=== PATIENT | female | born 1995 | race Two or more races ===

== ENCOUNTER 2022-11-26 15:00 | Observation (INO) | payer MEDICAID, OTHER ==
[~2022-11-26] VITALS: Ht 167.6 cm; Wt 100.2 kg
[2022-11-26] MEDS ORDERED: PREN-96 PO (16:19)
[2022-11-26 16:24] LABS: Basophils # (auto) 0 10 ^3/uL (0-0.2); Basophils % (auto) 0.3 % (0.0-2.0); Eosinophils # (auto) 0.1 10 ^3/uL (0-0.8); Eosinophils % (auto) 0.6 % (0.0-7.0); Hemoglobin 12.1 g/dL (12.2-16.2); Lymphocytes % (auto) 22.5 % (10.0-50.0); Mean Corpuscular Hemoglobin 31.5 pg (28.0-32.0); Mean Corpuscular Hgb Conc. 33.5 g/dL (32.0-36.0); Mean Corpuscular Volume 94.1 fL (80.0-100.0); Monocytes # (auto) 0.5 10 ^3/uL (0-1.3); Monocytes % (auto) 5.6 % (0.0-12.0); Neutrophils # (auto) 6.4 10 ^3/uL (1.6-8.6); Nucleated Red Blood Cells % 0.1 %; Red Blood Cells 3.83 10^6/uL (4.0-5.20); Red Cell Distribution Width 13.6 % (11.8-14.3)
[2022-11-26 16:44] LABS: Albumin 2.7 g/dL (3.4-5.0); Calcium 9.2 mg/dL (8.5-10.1); Potassium 3.8 mmol/L (3.5-5.1)
[2022-11-26 16:47] LABS: BUN/Creatinine Ratio 11.3 (10.0-20.0); Bilirubin, Total 0.7 mg/dL (0.2-1.0); Total Protein 7.7 g/dL (6.4-8.2)
[2022-11-26] MEDS ORDERED: URSO300C2 PO (17:38)
[2022-11-27 07:07] LABS: RPR Non Reactive (Non Reactive)
== END 2022-11-26 17:54 | disposition home or self-care (01) ==
LOC: LDRP 15:00
PROVIDERS: ADMIT Obstetrics & Gynecology; ATTEND Obstetrics & Gynecology
DX: O26.893 Other specified pregnancy related conditions, third trimester (principal); L29.9 Pruritus, unspecified; K83.1 Obstruction of bile duct; Z3A.29 29 weeks gestation of pregnancy
CPT/HCPCS: 36415; 59025; 76818; 80053; 81002; 84112; 84550; 85025; 86592; 94760; G0378

== ENCOUNTER 2022-11-30 13:00 | Observation (INO) | payer MEDICAID ==
[~2022-11-30 13:00] MED LIST: PREN-96 PO; URSO300C2 PO
== END 2022-11-30 15:01 | disposition home or self-care (01) ==
LOC: LDRP 13:00
PROVIDERS: ADMIT Obstetrics & Gynecology; ATTEND Obstetrics & Gynecology
DX: O26.613 Liver and biliary tract disorders in pregnancy, third trimester (principal); K83.1 Obstruction of bile duct; K76.89 Other specified diseases of liver; E78.79 Other disorders of bile acid and cholesterol metabolism; Z3A.35 35 weeks gestation of pregnancy
CPT/HCPCS: 59025; 76818; 81002; 94760; G0378

== ENCOUNTER 2022-12-10 09:30 | Observation (INO) | payer MEDICAID | END 2022-12-10 14:07 | disposition home or self-care (01) | LOC: UNDOADMOB 12:33 → LDRP 12:33 | PROVIDERS: ADMIT Obstetrics & Gynecology; ATTEND Obstetrics & Gynecology | DX: O26.613 Liver and biliary tract disorders in pregnancy, third trimester (principal); K83.1 Obstruction of bile duct; Z3A.36 36 weeks gestation of pregnancy | CPT/HCPCS: 59025; 76818; 81002; 94760; G0378 ==

== ENCOUNTER 2022-12-13 09:03 | Observation (INO) | payer MEDICAID | END 2022-12-13 11:23 | disposition home or self-care (01) | LOC: LDRP 09:03 | PROVIDERS: ADMIT Obstetrics & Gynecology; ATTEND Obstetrics & Gynecology | DX: O26.613 Liver and biliary tract disorders in pregnancy, third trimester (principal); K83.1 Obstruction of bile duct; Z3A.37 37 weeks gestation of pregnancy | CPT/HCPCS: 59025; 76818; 81002; G0378 ==

== ENCOUNTER 2022-12-15 08:30 | Observation (INO) | payer MEDICAID | END 2022-12-15 09:50 | disposition home or self-care (01) | LOC: UNDOADMOB 08:30 → LDRP 08:30 → UNDODISOB 09:50 | PROVIDERS: ADMIT Obstetrics & Gynecology; ATTEND Obstetrics & Gynecology | DX: O26.613 Liver and biliary tract disorders in pregnancy, third trimester (principal); K83.1 Obstruction of bile duct; Z3A.37 37 weeks gestation of pregnancy | CPT/HCPCS: 59025; 76818; 81002; 94760; G0378 ==

== ENCOUNTER 2022-12-17 04:13 | Inpatient (IN) | payer MEDICAID ==
[~2022-12-17] VITALS: Ht 167.6 cm; Wt 101.2 kg
[2022-12-17] MEDS ORDERED: WITCH HAZEL-GLYCERIN PAD TOP PRN (04:30)
[2022-12-17] MEDS ORDERED: PENICILLIN G POT 5MIL/D5 50ML 50 ML IV ONE (04:30)
[2022-12-17] MEDS ORDERED: PHISODERM TOP SOLN 240ML BTL TOP PRN (04:30)
[2022-12-17] MEDS ORDERED: PROMETHAZINE HCL 25 MG/ML 1ML IV PRN (04:30)
[2022-12-17] MEDS ORDERED: DERMOPLAST 60ML BOTTLE TOP PRN (04:30)
[2022-12-17] MEDS ORDERED: BUTORPHANOL TARTRATE 2 MG/1 ML VIAL IV PRN ×2 (04:30)
[2022-12-17] MEDS ORDERED: LIDOCAINE 2%HCL (LOCAL ANESTH.) INJ 20ML MDV IJ PRN (04:30)
[2022-12-17 05:04] LABS: Urine Bacteria NONE SEEN /hpf (None Seen); Urine Blood Negative /uL (Negative); Urine Mucus FEW (None Seen); Urine Specific Gravity 1.018 (1.001-1.035); Urine WBC 18 /hpf (0 - 5)
[2022-12-17 05:20] LABS: Alcohol, Urine < 3.0 mg/dL (0-10); Amphetamine Screen, Urine NEGATIVE (NEGATIVE); Barbiturate Scree,Urine NEGATIVE (NEGATIVE); Benzodiazephine Screen, Urine NEGATIVE (NEGATIVE); Cannabinoid Screen, Urine NEGATIVE (NEGATIVE); Cocaine Screen, Urine NEGATIVE (NEGATIVE); Opiate Scree,Urine NEGATIVE (NEGATIVE); Phencyclidine Screen, Urine NEGATIVE (NEGATIVE)
[2022-12-17 05:32] LABS: Basophils # (auto) 0 10 ^3/uL (0-0.2); Basophils % (auto) 0.3 % (0.0-2.0); Eosinophils # (auto) 0.1 10 ^3/uL (0-0.8); Eosinophils % (auto) 0.5 % (0.0-7.0); Hematocrit 33.6 % (36.0-46.0); Lymphocytes % (auto) 27.2 % (10.0-50.0); Mean Corpuscular Hemoglobin 31.1 pg (28.0-32.0); Mean Corpuscular Hgb Conc. 32.9 g/dL (32.0-36.0); Mean Corpuscular Volume 94.7 fL (80.0-100.0); Monocytes # (auto) 0.6 10 ^3/uL (0-1.3); Monocytes % (auto) 5.6 % (0.0-12.0); Neutrophils # (auto) 7.3 10 ^3/uL (1.6-8.6); Neutrophils % (auto) 66.4 % (37.0-80.0); Nucleated Red Blood Cells % 0.1 %; Red Blood Cells 3.55 10^6/uL (4.0-5.20); Red Cell Distribution Width 13.4 % (11.8-14.3)
[2022-12-17] MEDS: LACTATED RINGER'S 1,000 ML IV SCH ×2 (05:39→13:16)
[2022-12-17 05:43] LABS: Albumin 2.6 g/dL (3.4-5.0); Calcium 8.6 mg/dL (8.5-10.1); Potassium 3.7 mmol/L (3.5-5.1)
[2022-12-17 05:46] LABS: BUN/Creatinine Ratio 15.2 (10.0-20.0); Bilirubin, Total 0.2 mg/dL (0.2-1.0); Total Protein 7.1 g/dL (6.4-8.2)
[2022-12-17 05:47] LABS: INR 0.93 (0.9-1.15); Partial Thromboplastin Time 27.9 SEC (24.5-34.5)
[2022-12-17] MEDS: miSOPROStol 50 MCG per PRE-CUT 1/2 TAB PO PRN ×5 (06:11→23:48)
[2022-12-17] MEDS: PENICILLIN G POTASSIUM 2,500,000 UNITS in D5W 5% 50 ML IV SCH ×5 (09:29→21:29)
[2022-12-17] MEDS: URSODIOL 300 MG CAP PO SCH ×2 (17:05→22:11)
[2022-12-17] MEDS ORDERED: MINERAL OIL TOPICAL 10ml TOP PRN (20:15)
[2022-12-17] MEDS ORDERED: TRANEXAMIC ACID 1,000 MG in SODIUM CHL 0.9% 100 ML IV PRN (20:15)
[2022-12-17] MEDS ORDERED: PROMETHAZINE HCL 25 MG/ML 1ML IM ONE (20:15)
[2022-12-17] MEDS ORDERED: diphenhdrAMINE HCL 50 MG/1 ML VL IV PRN (20:15)
[2022-12-17] MEDS ORDERED: fentaNYL CITRATE 100 MCG/2 ML VL IV ONE (20:15)
[2022-12-17] MEDS ORDERED: TERBUTALINE SULFATE 1 MG/ML 1ML VIAL SC PRN (20:15)
[2022-12-17] MEDS ORDERED: LACT. RINGERS/OXYTOCIN 20UNITS 500 ML IV ONE ×2 (20:15→20:45)
[2022-12-17] MEDS ORDERED: ACETAMINOPHEN 325 MG TAB PO PRN (20:15)
[2022-12-17] MEDS ORDERED: miSOPROStol 100 mcg TAB SL PRN (20:15)
[2022-12-17] MEDS ORDERED: METHYLERGONOVINE MALEATE 0.2 MG/ML AMP IM PRN (20:15)
[2022-12-17] MEDS ORDERED: CARBOPROST TROMETHAMINE 250 MCG/1ML VIAL IM PRN (20:15)
[2022-12-18] MEDS: PENICILLIN G POTASSIUM 2,500,000 UNITS in D5W 5% 50 ML IV SCH ×6 (01:30→21:56)
[2022-12-18] MEDS ORDERED: LACT. RINGERS/OXYTOCIN 20UNITS 1,000 ML IV SCH ×2 (04:45→21:45)
[2022-12-18] MEDS: miSOPROStol 50 MCG per PRE-CUT 1/2 TAB PO PRN (05:44)
[2022-12-18] MEDS: URSODIOL 300 MG CAP PO SCH ×3 (05:45→21:56)
[2022-12-18] MEDS: LACTATED RINGER'S 1,000 ML IV SCH ×3 (07:54→15:24)
[2022-12-18 08:07] LABS: RPR Non Reactive (Non Reactive)
[2022-12-18] MEDS: fentaNYL CITRATE 100 MCG/2 ML VL IV PRN (22:27)
[2022-12-18] MEDS: PROMETHAZINE HCL 25 MG/ML 1ML IM PRN (22:27)
[2022-12-19] MEDS: PENICILLIN G POTASSIUM 2,500,000 UNITS in D5W 5% 50 ML IV SCH ×5 (01:56→17:56)
[2022-12-19] MEDS: PROMETHAZINE HCL 25 MG/ML 1ML IM PRN (03:01)
[2022-12-19] MEDS: fentaNYL CITRATE 100 MCG/2 ML VL IV PRN (03:01)
[2022-12-19] MEDS: URSODIOL 300 MG CAP PO SCH ×3 (05:31→22:00)
[2022-12-19] MEDS: ONDANSETRON HCL 4 MG/2 ML VIAL IV PRN ×2 (06:14→16:48)
[2022-12-19] MEDS ORDERED: CALCIUM CARB 500 MG CHEW TAB PO ONE (07:00)
[2022-12-19] MEDS ORDERED: ceFAZolin 2 GM/D5W100ml 100 ML IV ONE (07:15)
[2022-12-19] MEDS ORDERED: ePHEDrine SULFATE 50 MG/ML AMP IV ONE (13:00)
[2022-12-19] MEDS ORDERED: LIDOCAINE HCL 2 %PF INJ 10ML AMP IJ ONE (13:00)
[2022-12-19] MEDS ORDERED: ROPIVACAINE HCL 200 ML EPI SCH ×2 (13:00→15:00)
[2022-12-19] MEDS ORDERED: ceFAZolin 1GM/50ML 50 ML IV SCH (15:00)
[2022-12-19] MEDS ORDERED: METHYLERGONOVINE MALEATE 0.2 MG/ML AMP IM ONE ×2 (18:55→19:30)
[2022-12-19] MEDS ORDERED: CARBOPROST TROMETHAMINE 250 MCG/1ML VIAL IM ONE ×2 (18:56→19:30)
[2022-12-19] MEDS ORDERED: ACETAMINOPHEN 325 MG TAB PO PRN (19:30)
[2022-12-19] MEDS ORDERED: ONDANSETRON ODT 4 MG TAB PO PRN (19:30)
[2022-12-19] MEDS: DIPHENOXYLATE W/ATROPINE 2.5 MG TAB PO SCH (19:41)
[2022-12-19] MEDS ORDERED: DOCUSATE SOD 100 MG CAP PO SCH (22:00)
[2022-12-19 23:00] VITALS: BP 113/64; PULSE 79; RESP 18; TEMP 98.9; O2SAT 95
[2022-12-20 02:50] VITALS: BP 109/62; PULSE 68; RESP 18; TEMP 98.6; O2SAT 96
[2022-12-20] MEDS: DIPHENOXYLATE W/ATROPINE 2.5 MG TAB PO SCH (03:35)
[2022-12-20 07:30] VITALS: BP 95/61; PULSE 80; RESP 18; TEMP 98.6; O2SAT 98
[2022-12-20] MEDS: IBUPROFEN 600 MG TAB PO PRN ×2 (07:31→19:58)
[2022-12-20 07:44] LABS: Albumin 2.2 g/dL (3.4-5.0); Calcium 8.6 mg/dL (8.5-10.1); Potassium 3.4 mmol/L (3.5-5.1)
[2022-12-20 07:46] LABS: Bilirubin, Total 0.3 mg/dL (0.2-1.0); Total Protein 6.2 g/dL (6.4-8.2)
[2022-12-20] MEDS ORDERED: POTASSIUM CHL 20 Meq TABLET PO ONE (08:45)
[2022-12-20 11:15] VITALS: BP 94/60; PULSE 78; RESP 18; TEMP 98.5; O2SAT 98
[2022-12-20 15:28] VITALS: BP 94/60; PULSE 76; RESP 18; TEMP 97.9; O2SAT 98
[2022-12-20 15:30] VITALS: BP 90/52; PULSE 70
[2022-12-20 19:00] VITALS: BP 102/60; PULSE 90; RESP 16; TEMP 98.4; O2SAT 95
== END 2022-12-20 21:38 | disposition home or self-care (01) | DRG 560 ==
LOC: LDRP 04:13 → UNDOADMIN 04:13 → LDRP 04:27
PROVIDERS: ADMIT Obstetrics & Gynecology; ATTEND Obstetrics & Gynecology
PROC: 10E0XZZ Delivery of Products of Conception, External Approach (ICD-10-PCS; principal; 2022-12-19)
PROC: 0UQMXZZ Repair Vulva, External Approach (ICD-10-PCS; 2022-12-19)
PROC: 0UQGXZZ Repair Vagina, External Approach (ICD-10-PCS; 2022-12-19)
PROC: 3E033VJ Introduction of Other Hormone into Peripheral Vein, Percutaneous Approach (ICD-10-PCS; 2022-12-19)
PROC: 3E0DXGC Introduction of Other Therapeutic Substance into Mouth and Pharynx, External Approach (ICD-10-PCS; 2022-12-19)
PROC: 3E0R3BZ Introduction of Anesthetic Agent into Spinal Canal, Percutaneous Approach (ICD-10-PCS; 2022-12-19)
PROC: 00HU33Z Insertion of Infusion Device into Spinal Canal, Percutaneous Approach (ICD-10-PCS; 2022-12-19)
DX: O26.62 Liver and biliary tract disorders in childbirth (principal); Z37.0 Single live birth; K83.1 Obstruction of bile duct; O71.4 Obstetric high vaginal laceration alone; O99.214 Obesity complicating childbirth; O71.82 Other specified trauma to perineum and vulva; Z3A.37 37 weeks gestation of pregnancy; E66.01 Morbid (severe) obesity due to excess calories; O99.824 Streptococcus B carrier state complicating childbirth
CPT/HCPCS: 36415; 59409; 62282; 80053; 80307; 81001; 85025; 85610; 85730; 86592; 86850; 86900; 86901; 94760; 94762; 96360; 96361; 96365; 96366; 96372; 96374; 96375; G0378; J0690; J2405; J2540; J2590; J7060